=== PATIENT | male | born 1965 | race African-American/Black ===

== ENCOUNTER 2018-05-08 03:20 | Emergency (ER) | payer OTHER ==
[~2018-05-08] VITALS: Ht 182.9 cm; Wt 90.7 kg
[~2018-05-08 03:20] MED LIST: COGENTIN1 MG ORAL; HALOPERIDOL1 MG ORAL; UNOBMED
--- NOTE | 2018-05-08 03:35 | Emergency Room Report ---
History of Present Illness General Chief Complaint: Behavioral Complaint Source: Patient (ChioSonal MARINELLI) Present Illness HPI Patient present by paramedics Reporting that he is unable to take care of himself Patient reports that he has been on psychiatric hold in the past Denies any active homicidal or suicidal thoughts However reports that he is on multiple medications including cervical, which she has not been able to take Denies any chest pain denies any focal weakness Denies any auditory or visual hallucinations (Sonal Barroso DO) Allergies: Coded Allergies: No Known Allergies (Unverified , 05/08/18) Patient History Past Medical History: see triage record Pertinent Family History: none Reviewed Nursing Documentation: PMH: Agreed; PSxH: Agreed (Sonal Barroso DO) Nursing Documentation-PMH Past Medical History: No History, Except For Hx Cardiac Problems: No - 5x surgeries (skull, wrist, foot) History Of Psychiatric Problem: Yes - paranoid schizophrenia, insomnia (Sonal Barroso DO) Review of Systems All Other Systems: negative except mentioned in HPI (Sonal Barroso DO) Physical Exam Vital Signs Date Time Temp Pulse Resp B/P (MAP) Pulse Ox O2 Delivery O2 Flow Rate FiO2 05/08/18 03:24 97.9 84 16 114/82 96 Room Air Sp02 EP Interpretation: reviewed, normal General Appearance: well appearing, no apparent distress Head: normocephalic, atraumatic Eyes: bilateral eye PERRL, bilateral eye EOMI ENT: hearing grossly normal, normal pharynx Neck: supple Respiratory: lungs clear Cardiovascular #1: regular rate, rhythm Gastrointestinal: non tender, soft Musculoskeletal: normal inspection Neurologic: alert, oriented x3 Psychiatric: mood/affect normal, no suicidal/homicidal ideation Skin: no rash Lymphatic: no adenopathy (Sonal Barroso DO) Medical Decision Making Diagnostic Impression: Primary Impression: Depression ER Course Patient has examination performed to further medically clear the patient Given his complaints and presentation will benefit from psychiatric evaluation and input (Sonal Barroso DO) ER Course Patient was signed out to me for final disposition. Patient slept most this morning. Patient had breakfast. Patient felt much better. Patient denies suicidal or homicidal ideation denies auditory or visual hallucinations. Patient requested he be discharged. He did not want to wait for psychiatric evaluation which I had requested. Given patient is back to baseline is not suicidal or homicidal and does not meet a 5150 criteria and does not want to stay any further I cannot hold patient here any further instead I recommended he follow-up outpatient. Advised that if he should change his mind or if he feels any worsening of his depression come back in emergency department. Patient is able to contract for safety states that he will seek outpatient treatment.Patient is advised to follow up with primary doctor in 2-3 days and return the emergency room for any worsening symptoms and as needed.Patient did have mild leukocytosis I felt that was likely secondary to stress event. As patient is afebrile no evidence of any infection. Recommend outpatient follow- up for this abnormal lab result. Labs Test 05/08/18 03:37 05/08/18 03:47 Urine Opiates Screen Negative (NEGATIVE) Urine Barbiturates Screen Negative (NEGATIVE) Phencyclidine (PCP) Screen Negative (NEGATIVE) Urine Amphetamines Screen Negative (NEGATIVE) Urine Benzodiazepines Screen Negative (NEGATIVE) Urine Cocaine Screen Negative (NEGATIVE) Urine Marijuana (THC) Screen Positive (NEGATIVE) White Blood Count 14.6 K/UL (4.8-10.8) Red Blood Count 5.19 M/UL (4.70-6.10) Hemoglobin 14.7 G/DL (14.2-18.0) Hematocrit 42.8 % (42.0-52.0) Mean Corpuscular Volume 82 FL (80-99) Mean Corpuscular Hemoglobin 28.2 PG (27.0-31.0) Mean Corpuscular Hemoglobin Concent 34.2 G/DL (32.0-36.0) Red Cell Distribution Width 11.9 % (11.6-14.8) Platelet Count 284 K/UL (150-450) Mean Platelet Volume 5.3 FL (6.5-10.1) Neutrophils (%) (Auto) 78.5 % (45.0-75.0) Lymphocytes (%) (Auto) 15.5 % (20.0-45.0) Monocytes (%) (Auto) 5.2 % (1.0-10.0) Eosinophils (%) (Auto) 0.3 % (0.0-3.0) Basophils (%) (Auto) 0.5 % (0.0-2.0) Sodium Level 136 MMOL/L (136-145) Potassium Level 3.7 MMOL/L (3.5-5.1) Chloride Level 99 MMOL/L (98-107) Carbon Dioxide Level 30 MMOL/L (21-32) Anion Gap 8 mmol/L (5-15) Blood Urea Nitrogen 8 mg/dL (7-18) Creatinine 1.0 MG/DL (0.55-1.30) Estimat Glomerular Filtration Rate > 60 mL/min (>60) Glucose Level 133 MG/DL (74-106) Calcium Level 9.1 MG/DL (8.5-10.1) Total Bilirubin 0.4 MG/DL (0.2-1.0) Aspartate Amino Transf (AST/SGOT) 21 U/L (15-37) Alanine Aminotransferase (ALT/SGPT) 21 U/L (12-78) Alkaline Phosphatase 108 U/L (46-116) Total Protein 8.7 G/DL (6.4-8.2) Albumin 4.3 G/DL (3.4-5.0) Globulin 4.4 g/dL Albumin/Globulin Ratio 1.0 (1.0-2.7) Salicylates Level 3.8 ug/mL (2.8-20) Acetaminophen Level < 2 MCG/ML (10-30) Serum Alcohol < 3 mg/dL (Henry Snow MD) Last Vital Signs Date Time Temp Pulse Resp B/P (MAP) Pulse Ox O2 Delivery O2 Flow Rate FiO2 05/08/18 03:24 97.9 84 16 114/82 96 Room Air (Sonal Barroso DO) Status: improved (Henry Snow MD) Disposition: HOME, SELF-CARE Condition: Stable Sonal Barroso DO May 08, 2018 03:35 Henry Snow MD May 08, 2018 11:00
[2018-05-08 03:58] LABS: BASOPHILS % (AUTO) 0.5 % (0.0-2.0); EOSINOPHILS % (AUTO) 0.3 % (0.0-3.0); HEMATOCRIT 42.8 % (42.0-52.0); HEMOGLOBIN 14.7 G/DL (14.2-18.0); LYMPHOCYTES % (AUTO) 15.5 % (20.0-45.0); MEAN CORPUSCULAR VOLUME 82 FL (80-99); MONOCYTES % (AUTO) 5.2 % (1.0-10.0); NEUTROPHILS % (AUTO) 78.5 % (45.0-75.0); PLATELET COUNT 284 K/UL (150-450); RED BLOOD COUNT 5.19 M/UL (4.70-6.10); RED CELL DISTRIBUTION WIDTH 11.9 % (11.6-14.8); WHITE BLOOD COUNT 14.6 K/UL (4.8-10.8)
[2018-05-08 04:02] VITALS: BP 114/82
[2018-05-08 04:07] LABS: ANION GAP 8 mmol/L (5-15); BLOOD UREA NITROGEN 8 mg/dL (7-18); CALCIUM 9.1 MG/DL (8.5-10.1); CARBON DIOXIDE 30 MMOL/L (21-32); CHLORIDE 99 MMOL/L (98-107); POTASSIUM 3.7 MMOL/L (3.5-5.1); SODIUM 136 MMOL/L (136-145)
[2018-05-08 04:21] LABS: ALANINE AMINOTRANSFERASE 21 U/L (12-78); ALBUMIN 4.3 G/DL (3.4-5.0); ALKALINE PHOSPHATASE 108 U/L (46-116); ASPARTATE AMINO TRANSFERASE 21 U/L (15-37); BILIRUBIN,TOTAL 0.4 MG/DL (0.2-1.0)
[2018-05-08 06:51] VITALS: BP 114/82
[2018-05-08 07:00] VITALS: BP 118/76
[2018-05-08 09:16] VITALS: BP 124/76
[2018-05-08 10:08] VITALS: BP 132/74
== END 2018-05-08 10:11 | disposition home or self-care (01) ==
LOC: EDBD 03:20 → EMR 03:29
DX: F32.9 Major depressive disorder, single episode, unspecified (principal); F20.0 Paranoid schizophrenia; G47.00 Insomnia, unspecified
CPT/HCPCS: 36415; 80053; 80307; 80329; 85025; 99283

== ENCOUNTER 2018-09-25 17:33 | Emergency (ER) | payer OTHER ==
[~2018-09-25] VITALS: Ht 182.9 cm; Wt 88.5 kg
[2018-09-25 17:46] VITALS: BP 131/72
--- NOTE | 2018-09-25 17:55 | NUR ---
ED Nurse Note: Patient walked into ED by himself patient reports that he has psychiatric illness, schizoaffective disorder. patient states that "I need to be on hold because I'm grossly disabled due to my psychiatric disease" Patient is alert and awake, denies SI at this time. Fernandez MURRAY by the bedside.
--- NOTE | 2018-09-25 18:30 | NUR ---
ED Nurse Note: Provided sandwich/juice/water provided.
[2018-09-25 18:40] LABS: BASOPHILS % (AUTO) 0.7 % (0.0-2.0); EOSINOPHILS % (AUTO) 1.1 % (0.0-3.0); HEMATOCRIT 37.8 % (42.0-52.0); HEMOGLOBIN 12.4 G/DL (14.2-18.0); LYMPHOCYTES % (AUTO) 27.7 % (20.0-45.0); MEAN CORPUSCULAR VOLUME 85 FL (80-99); MONOCYTES % (AUTO) 4.8 % (1.0-10.0); NEUTROPHILS % (AUTO) 65.7 % (45.0-75.0); PLATELET COUNT 298 K/UL (150-450); RED BLOOD COUNT 4.44 M/UL (4.70-6.10); RED CELL DISTRIBUTION WIDTH 12.5 % (11.6-14.8); WHITE BLOOD COUNT 8.3 K/UL (4.8-10.8)
--- NOTE | 2018-09-25 18:47 | Emergency Room Report ---
History of Present Illness General Chief Complaint: Behavioral Complaint Present Illness HPI 52-year-old male patient presents the ER requesting to be placed on 72-hour psychiatric hold. Patient reports history of schizoaffective disorder and bipolar disorder. States he has not been taking medication recently. Does not recall names of medications previously taken. Denies thoughts of hurting himself or others. States that he is "gravely disabled" and needs to be placed on a hold. Denies other aggravating or relieving factors. Also reports that he "may have" TB. States is not been taking any medication for TB. Denies hemoptysis. Denies night chills. Denies use of drugs or alcohol. Denies chest pain or shortness of breath. Denies abdominal pain. Patient is not on a 5150 hold. States his previously been hospitalized for psychiatric disorders. (Denilson Cronin P.A.) Allergies: Coded Allergies: No Known Allergies (Unverified , 05/08/18) Patient History Past Medical History: see triage record Reviewed Nursing Documentation: PMH: Agreed; PSxH: Agreed (Denilson Cronin P.Barbra) Nursing Documentation-PMH Hx Cardiac Problems: No - 5x surgeries (skull, wrist, foot) History Of Psychiatric Problem: Yes - schizoaffective disorder. (Denilson Cronin P.AAdryan) Review of Systems All Other Systems: negative except mentioned in HPI (Denilson Cronin P.AAdryan) Physical Exam Vital Signs Date Time Temp Pulse Resp B/P (MAP) Pulse Ox O2 Delivery O2 Flow Rate FiO2 09/25/18 17:46 99.0 88 18 131/72 98 Room Air Sp02 EP Interpretation: reviewed, normal General Appearance: well appearing, no apparent distress, alert, GCS 15, non- toxic Head: normocephalic, atraumatic Eyes: bilateral eye normal inspection, bilateral eye PERRL ENT: hearing grossly normal, normal pharynx, no angioedema, normal voice, uvula midline, moist mucus membranes Neck: full range of motion Respiratory: lungs clear, normal breath sounds, no rhonchi, no respiratory distress, no accessory muscle use, no wheezing, speaking full sentences Cardiovascular #1: regular rate, rhythm, no edema Gastrointestinal: non tender, soft, no mass, non-distended, no guarding, no rebound Genitourinary: no CVA tenderness Musculoskeletal: back normal, digits/nails normal, gait/station normal, normal range of motion, non-tender Neurologic: alert, oriented x3, responsive, motor strength/tone normal, sensory intact Psychiatric: mood/affect normal Skin: no rash Lymphatic: no adenopathy (Denilson Cronin) Medical Decision Making PA Attestation Dr. Henry is my supervising Physician whom patient management has been discussed with. (Denilson Cronin) Diagnostic Impression: Primary Impression: Behavioral disorder ER Course Pt. presents to the ED c/o "I need to be placed on a hold", denies SI, HI. Ddx considered but are not limited to anxiety, depression, drug use, alcohol use , behavioral disorder. Vital signs: are WNL, pt. is afebrile Ordered labs, urine drug screen, serum alcohol. ER COURSE: Resting comfortably no acute distress, not agitated, denies thoughts of hurting herself or others, denies any voices, does not require chemical or physical medical sedation or physical restraints at this time. Chest x-ray unremarkable, no signs of tuberculosis CBC and CMP unremarkable Acetaminophen and salicylate levels within normal limits Serum alcohol not elevated Urine drug screen positive for marijuana otherwise negative. Patient medically cleared. Patient eating foot and drinking in the ER without difficulty. Patient signed out to Dr. Santiago. - Please note that this Emergency Department Report was dictated using [employer] enterprise security architect technology software, occasionally this can lead to erroneous entry secondary to interpretation by the dictation equipment. Olamide (Denilson Cronin) ER Course Signout to me. He came in saying that he needs to see a social psychologist. He slept for 8 hours and said now he is fine he wants to go home. He said he is not a 5150 so he does not want to stay. He is not suicidal or homicidal. We' ll discharge home. Does not want [facility]. (Richi Jovel MD) Chest X-Ray Diagnostic Results Chest X-Ray Diagnostic Results : Chest X-Ray Ordered: Yes # of Views/Limited/Complete: 1 View Indication: Chest Pain EP Interpretation: Yes PA Xray: Interpretation reviewed, by supervising MD, and agrees with findings. Interpretation: no consolidation, no effusion, no pneumothorax, no acute cardiopulmonary disease Impression: No acute disease PA Scribe Text Fernandez Cronin PA-C (Denilson Cronin) Last Vital Signs Date Time Temp Pulse Resp B/P (MAP) Pulse Ox O2 Delivery O2 Flow Rate FiO2 09/25/18 18:32 88 18 Room Air 09/25/18 17:46 99.0 131/72 98 (Denilson Cronin) Status: improved (Richi Jovel MD) Disposition: HOME, SELF-CARE Condition: Stable Referrals: NOT CHOSEN IPA/,REFERRING (PCP) Patient Instructions: Self-Destructive Behavior Additional Instructions: Follow-up with mental health in a week. Return if worse. Denilson Cronin Sep 25, 2018 18:47 Richi Jovel MD Sep 26, 2018 01:36
[2018-09-25 18:53] LABS: ANION GAP 8 mmol/L (5-15); BLOOD UREA NITROGEN 11 mg/dL (7-18); CALCIUM 8.6 MG/DL (8.5-10.1); CARBON DIOXIDE 28 MMOL/L (21-32); CHLORIDE 104 MMOL/L (98-107); CREATININE 0.8 MG/DL (0.55-1.30); POTASSIUM 3.6 MMOL/L (3.5-5.1); SODIUM 140 MMOL/L (136-145)
[2018-09-25 18:57] LABS: ALANINE AMINOTRANSFERASE 30 U/L (12-78); ALBUMIN 3.5 G/DL (3.4-5.0); ALKALINE PHOSPHATASE 82 U/L (46-116); ASPARTATE AMINO TRANSFERASE 27 U/L (15-37); BILIRUBIN,TOTAL 0.3 MG/DL (0.2-1.0)
--- NOTE | 2018-09-25 19:07 | NUR ---
ED Nurse Note: asked patient to give urine sample patient is trying to give urine sample at this time
--- NOTE | 2018-09-25 19:09 | NUR ---
HAND-OFF: Report given to Yvette Wong RN. Patient is alert awake x3 stable in bed
[2018-09-25 21:48] VITALS: BP 106/66
--- NOTE | 2018-09-25 21:50 | NUR ---
ER Nurse Note: Pt remains calm, cooperative, asleep. Pt provided urine sample; sent to lab. SHAHAB Baxter. All safety measures met; will continue to montmariam.
--- NOTE | 2018-09-26 01:15 | NUR ---
ER Nurse Note: Pt asleep, calm; no signs of distress. Pt was offered a new urinal, food, gown, warm blanket. Plan is to DC in AM. All safety measures met; will continue to ghassan.
[2018-09-26 01:42] VITALS: BP 110/68
--- NOTE | 2018-09-26 02:03 | NUR ---
ER Nurse Note: Pt seen, treated, medically cleared by ER MD for discharge. Discharge instructions given; pt refused to signs and take DC forms. Pt a&ox4, VSS, no signs of distress. ID band removed. IV was removed by pt; site clean and no signs of infection. Cath tip is intact. Pt refused to complete homeless discharge paperwork, and refused to give address for discharge. Pt left with all belongings, steady gait via own transporation.
--- NOTE | 2018-09-26 09:55 | Diagnostic Imaging Report ---
Indication: Chest pain Technique: One view of the chest Comparison: none Findings: Lungs and pleural spaces are clear. Heart size is normal Impression: No acute process
== END 2018-09-26 01:42 | disposition home or self-care (01) ==
LOC: EMR 18:07
DX: F91.9 Conduct disorder, unspecified (principal); F25.9 Schizoaffective disorder, unspecified; F31.9 Bipolar disorder, unspecified
CPT/HCPCS: 36415; 71045; 80053; 80307; 80329; 85025; 99284